=== PATIENT | male | born 1950 | race Caucasian/White ===

== ENCOUNTER 2017-12-18 12:34 | Emergency (ER) | payer MEDICARE, MEDICAID ==
--- NOTE | 2017-12-18 14:13 | ED Physician Documentation ---
PD HPI HEENT - Stated complaint Stated Complaint: MALE /EAR PX - Chief complaint Chief Complaint: General - History obtained from History obtained from: Patient - History of Present Illness Timing - onset: How many days ago Timing - duration: Days Timing - details: Gradual onset, Still present Location: Sinuses Worsens: No: Swalllowing Associated symptoms: Rhinorrhea, Other (sinus pressure and pain; also with some dysuria for past couple days.). No: Fever, Congestion, Cough Similar symptoms before: Diagnosis (has had prostatitis before and says it feels similar.) Recently seen: Not recently seen Review of Systems Constitutional: denies: Fever, Chills, Myalgias Nose: reports: Rhinorrhea / runny nose, Congestion, Sinus pressure / pain Throat: denies: Sore throat Cardiac: denies: Chest pain / pressure, Palpitations Respiratory: denies: Dyspnea, Cough GI: denies: Nausea, Vomiting, Diarrhea : reports: Frequency. denies: Hematuria, Discharge Skin: denies: Rash Neurologic: denies: Generalized weakness, Focal weakness, Numbness PD PAST MEDICAL HISTORY - Past Medical History Past Medical History: Yes Cardiovascular: None Respiratory: None Neuro: None Endocrine/Autoimmune: None : Other (prostatitis in the past. ) - Present Medications Home Medications: Ambulatory Orders Medication Instructions Recorded Confirmed Ciprofloxacin HCl [Cipro] 500 mg PO BID #14 tablet 12/18/17 Dexamethasone [Decadron] 4 mg PO DAILY #5 tablet 12/18/17 - Allergies Allergies/Adverse Reactions: Allergies Allergy/AdvReac Type Severity Reaction Status Date / Time sulfamethoxazole AdvReac Unknown Verified 12/18/17 12:42 [From Bactrim] trimethoprim [From Bactrim] AdvReac Unknown Verified 12/18/17 12:42 - Social History Does the pt smoke?: Yes Smoking Status: Current every day smoker PD ED PE NORMAL - Vitals Vital signs reviewed: Yes - General General: Alert and oriented X 3, No acute distress, Well developed/nourished - HEENT HEENT: Ears normal, Moist mucous membranes, Pharynx benign, Other - Neck Neck: Supple, no meningeal sign, No adenopathy - Cardiac Cardiac: RRR, No murmur - Respiratory Respiratory: Clear bilaterally - Abdomen Abdomen: Soft, Non tender - Male Male : Other (external genitalia normal. scrotum without tenderness nor swelling. ) - Back Back: No CVA TTP Results - Vitals Vitals: Oxygen O2 Source Room air - Labs Labs: Laboratory Tests 12/18/17 12/18/17 12/18/17 14:20 14:33 15:02 WBC 8.0 RBC 4.65 L Hgb 14.7 Hct 41.9 L MCV 90.2 MCH 31.6 H MCHC 35.0 RDW 13.1 Plt Count 246 MPV 7.7 Neut # 5.6 Lymph # 1.4 L Hayes # 0.8 Eos # 0.1 Baso # 0.1 Absolute Nucleated RBC 0.00 Nucleated RBC % 0.0 Sodium Potassium Chloride Carbon Dioxide Anion Gap BUN Creatinine Estimated GFR (MDRD) Glucose Calcium Total Bilirubin AST ALT Alkaline Phosphatase Total Protein Albumin Globulin Albumin/Globulin Ratio Lipase Urine Color YELLOW Urine Clarity CLEAR Urine pH 6.0 Ur Specific [place] <=1.005 Urine Protein NEGATIVE Urine Glucose (UA) NEGATIVE Urine Ketones NEGATIVE Urine Occult Blood NEGATIVE Urine Nitrite NEGATIVE Urine Bilirubin NEGATIVE Urine Urobilinogen 0.2 (NORMAL) Ur Leukocyte Esterase NEGATIVE Ur Microscopic Review NOT INDICATED Urine Culture Comments NOT INDICATED T.pallidum IgG (EIA) C.trachomatis RNA (TMA) NOT DETECTED Chlamydia/GC Comment SEE NOTE N.gonorrhoeae RNA (TMA) NOT DETECTED 12/18/17 12/18/17 15:02 15:02 WBC RBC Hgb Hct MCV MCH MCHC RDW Plt Count MPV Neut # Lymph # Hayes # Eos # Baso # Absolute Nucleated RBC Nucleated RBC % Sodium 135 Potassium 4.4 Chloride 101 Carbon Dioxide 23 Anion Gap 11.0 BUN 19 Creatinine 1.0 Estimated GFR (MDRD) 74 L Glucose 100 Calcium 10.5 H Total Bilirubin 0.5 AST 22 ALT 27 Alkaline Phosphatase 57 Total Protein 7.9 Albumin 5.0 Globulin 2.9 Albumin/Globulin Ratio 1.7 Lipase 12 L Urine Color Urine Clarity Urine pH Ur Specific [place] Urine Protein Urine Glucose (UA) Urine Ketones Urine Occult Blood Urine Nitrite Urine Bilirubin Urine Urobilinogen Ur Leukocyte Esterase Ur Microscopic Review Urine Culture Comments T.pallidum IgG (EIA) NEGATIVE C.trachomatis RNA (TMA) Chlamydia/GC Comment N.gonorrhoeae RNA (TMA) PD MEDICAL DECISION MAKING - ED course Complexity details: reviewed results, considered differential (does have signs of sinusitis, and reports dyspuria similar to prior prostatitis. ), d/w patient Departure - Departure Disposition: 01 Home, Self Care Clinical Impression: Sinusitis, acute Qualifiers: Sinusitis location: frontal Recurrence: non-recurrent Qualified Code(s): J01.10 - Acute frontal sinusitis, unspecified Prostatitis Qualifiers: Prostatitis type: acute Qualified Code(s): N41.0 - Acute prostatitis Condition: Stable Record reviewed to determine appropriate education?: Yes Instructions: ED Prostatitis, ED Sinusitis Abx Tx Prescriptions: Ciprofloxacin HCl [Cipro] 500 mg PO BID #14 tablet Dexamethasone [Decadron] 4 mg PO DAILY #5 tablet Comments: Drink lots of fluids. Ibuprofen if needed for pains. Cipro antibiotic should cover prostatitis and reasonably well cover sinus germs. The quinolones like Cipro do have the highest level of neuro side effects, but we can go with it if that is what has worked the best for you in the past. Decadron anti- inflammatory daily for 5 more days. Recheck if not improving over the next several days. Discharge Date/Time: 12/18/17 15:58
[2017-12-18 15:08] LABS: BASOPHILS # (AUTO) 0.1 10^3/uL (0.0-0.1); BASOPHILS % (AUTO) 1.4 %; EOSINOPHILS # (AUTO) 0.1 10^3/uL (0.0-0.7); EOSINOPHILS % (AUTO) 0.9 %; HGB - HEMOGLOBIN 14.7 g/dL (14.0-18.0); LYMPHOCYTES # (AUTO) 1.4 10^3/uL (1.5-3.5); LYMPHOCYTES % (AUTO) 17.4 %; MEAN CORPUSCULAR HEMOGLOBIN 31.6 pg (27.0-31.0); MEAN CORPUSCULAR VOLUME 90.2 fL (80.0-94.0); MEAN PLATELET VOLUME 7.7 fL (7.4-11.4); MONOCYTES # (AUTO) 0.8 10^3/uL (0.0-1.0); NEUTROPHILS # (AUTO) 5.6 10^3/uL (1.5-6.6); NEUTROPHILS % (AUTO) 70.3 %; PLT - PLATELET COUNT 246 10^3/uL (130-450); RED BLOOD COUNT 4.65 10^6/uL (4.70-6.10); RED CELL DISTRIBUTION WIDTH 13.1 % (12.0-15.0)
[2017-12-18 15:10] LABS: BILIRUBIN,URINE NEGATIVE (NEGATIVE); GLUCOSE, URINE (UA) NEGATIVE (NEGATIVE); KETONES,URINE (UA) NEGATIVE (NEGATIVE); LEUKOCYTE ESTERASE, URINE NEGATIVE (NEGATIVE); NITRITE,URINE NEGATIVE (NEGATIVE); OCCULT BLOOD,URINE NEGATIVE (NEGATIVE); PROTEIN,URINE NEGATIVE (NEGATIVE); UROBILINOGEN,URINE 0.2 (NORMAL) E.U./dL (NORMAL)
[2017-12-18 15:12] LABS: CLARITY,URINE CLEAR (CLEAR)
[2017-12-18 15:20] LABS: ALBUMIN/GLOBULIN RATIO 1.7 (1.0-2.2); BILIRUBIN,TOTAL 0.5 mg/dL (0.2-1.0); CALCIUM 10.5 mg/dL (8.5-10.3); TOTAL PROTEIN 7.9 g/dL (6.7-8.2)
[2017-12-18] MEDS ORDERED: DEXAMETHASONE 10 MG/ML VIAL PO STA (15:23)
[2017-12-18] MEDS ORDERED: DOXYCYCLINE 100 MG TABLET PO STA (15:23)
[2017-12-18 15:57] VITALS: BP 139/87
== END 2017-12-18 15:58 | disposition home or self-care (01) ==
LOC: ED 12:34
DX: J01.10 Acute frontal sinusitis, unspecified (principal); N41.0 Acute prostatitis; F17.200 Nicotine dependence, unspecified, uncomplicated
CPT/HCPCS: 36415; 80053; 81001; 81003; 83690; 85025; 86780; 87086; 87491; 87591; 99283

== ENCOUNTER 2021-04-11 14:00 | Outpatient (CLI) | payer MEDICARE, MEDICAID | END 2021-04-11 14:01 | disposition short-term general hospital (02) | LOC: EMS 14:00 | DX: I46.9 Cardiac arrest, cause unspecified (principal) | CPT/HCPCS: A0425; A0433 ==